=== PATIENT | male | born 1965 | race Caucasian/White ===

== ENCOUNTER 2019-01-22 04:12 | Observation (INO) ==
--- NOTE | 2019-01-22 10:25 | Internal Med History&Physical ---
Date of Encounter: 01/22/19 Time of Encounter: 10:15 Internal Medicine - H&P: HPI Chief complaint: Hematuria Admitted From: Emergency Dept ([facility] ED) History of present illness: Raudel Zarate is a 53 M w hx HTN, obesity, who presents as transfer from [facility] for gross hematuria. Began late last night around midnight when he attempted to urinate, with initial bright red bloody urine with small clots, which then abruptly halted. With valsalva maneuver he was able to pass a larger clot and subsequently able to complete urination. Painless. Has never had this before. No abdominal, penile, or testicular pain. Sexually active only with . Went to ED as soon as bleeding noticed. No dizziness or lightheadedness, no fevers, no abd pain, no N/V, no diarrhea, no rashes. In the ED, vitals unremarkable, labs unremarkable except Cr 1.2. Their documentation does note continued hematuria. CT abd revealed new 9 cm mass on Left kidney. A guerra catheter was inserted with return of clear yellow urine, surprisingly. He was transferred to [place] for further management of his hematuria and further workup of this renal mass. PMH: HTN, obesity PSH: none SH: remote smoker, social EtOH use FH: kidney stones, no cancer Internal Medicine - H&P: Meds Allergy/AdvReac Type Severity Reaction Status Date / Time egg AdvReac Diarrhea Verified 01/22/19 10:06 wheat AdvReac Rash Verified 01/22/19 10:06 All Systems PM: A 10-system review of systems was performed and is negative for pertinent findings except as documented above in the HPI. - Constitutional Vitals: Vital Signs Temp Pulse Resp BP Pulse Ox 01/22/19 10:45 99.0 F 93 18 173/117 98 Intake and Output 01/21/19 01/22/19 01/22/19 23:59 07:59 15:59 Output Total 1150 / 1150 Balance -1150 / -1150 Output: Catheter 1150 / 1150 Other: Weight 124.693 kg Patient Weight 01/22/19 23:59 Weight 124.693 kg Exam: General: NAD, good eye contact, well appearing Head: Atraumatic, normocephalic. Face symmetric Eyes: EOMI, sclerae anicteric ENT: Mucous membranes moist. Normal oral mucosa and dentition. Trachea midline. Thoracic: No visible chest wall deformities. Normal breath sounds b/l, no wheezing or crackles Cardio: Normal S1 and S2, regular rate and rhythm, no murmurs. Abdomen: Soft, nontender, nondistended. Bowel sounds present. No rebound. Obese. Extremities: Warm, well perfused. DP pulses 2+ b/l. No clubbing, cyanosis. Does have pitting edema b/l LE to knees Skin: Intact. No rashes, bruises, or ulcers Neuro: Awake, fully oriented. Good memory, concentration, attention. Speech fluent. CN II-XII grossly intact. Strength 5/5 in b/l UE and LE - Summary of Assessment and Plan Summary of Assessment and Plan: Raudel Zarate is a 53 M w hx HTN, obesity, who p/w painless hematuria and new L renal mass. Gross hematuria: resolved after Guerra insertion, indicating possible urethral injury/tear. Could certainly also be upper source w renal mass on CT. - monitor Hb - Urology consult Renal mass: seen on CT - further rec's per Urology HTN: uncontrolled, likely 2/2 situational anxiety, not on home meds, will monitor and consider initiating therapy if persistently elevated Gout: no recent flares, diet controlled, not on meds Morbid obesity: BMI 43 PPx: SCDs Activity: ambulate FEN: regular, MIVF NS@125 x2L Lines: PIV, Guerra Consults: Uro Code: Full Dispo: obs for hematuria, anticipate d/c in 0-1 days, will be homegoing
[2019-01-22] MEDS ORDERED: Ondansetron 4 MG/2 ML VIAL IVP PRN (10:31)
[2019-01-22] MEDS ORDERED: Acetaminophen 325 MG TABLET PO PRN (10:31)
[2019-01-22] MEDS ORDERED: 0.9 % Sodium Chloride 1,000 ML IVC SCH (10:45)
--- NOTE | 2019-01-22 14:25 | Urology - Consult Note ---
<Temitope Medellin N - Last Filed: 01/22/19 14:55> Date of Encounter: 01/22/19 Time of Encounter: 14:23 - Assessment and Plan (1) Renal mass, left Current Visit: Yes Status: Acute Assessment and plan: Patient is a 53-year-old male who presents with a large, 9 cm left renal mass. I reviewed CT findings with patient at bedside. I briefly discussed options for renal mass management and explained Dr. Henao will be in to reevaluate patient and further discuss plan. We are awaiting social work response in order to plan for further surgical intervention. (2) Gross hematuria Current Visit: Yes Status: Acute Assessment and plan: Patient is a 53-year-old male who presents with a left renal mass and gross hematuria. Urine is resolved, and is now transparent and clear. I have placed order to remove his Thompson catheter. CBC and BMP are pending. Patient is okay to resume normal diet at this time. Urology CN:HPI Consult date: 01/22/19 Reason for consult Urology: Gross Hematuria (left renal mass) Requesting physician: Julian Rodriguez History of present illness: Patient is a 53-year-old male who presents with a 9 cm left renal mass and gross hematuria. Patient initially presented to [facility] with complaint of painless gross hematuria with onset at midnight last night. Patient underwent Thompson catheter placement and CT of the abdomen and pelvis that revealed a 9 cm left renal mass. Patient was subsequently transferred to [facility] for urologic intervention. Patient reports no prior history of gross hematuria, and he denies any flank pain. Patient does have a history of nephrolithiasis, presumably uric acid stones, and he has a history of gout and passed multiple stones by medical expulsion. Patient is not currently established with a urologist, and he does not have a primary care provider. 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 He denies smoking, but he does have a past smoking history of approximately 6 years from ages [age]. Patient denies any known family history of malignancy or renal stones. On my evaluation, patient is currently sitting upright in bed in no apparent distress, and he has an indwelling Thompson catheter that is draining transparent, clear yellow urine into bedside bag. Past Med Surg Social Fam HX - Past Medical History Medical history: hypertension, kidney stones Psychiatric history: no psych history - Past Surgical History Surgical History: no surgical history - Social History Smoking Status: Former smoker Smokeless Tobacco Status: No Alcohol use: rarely Drug use: none - Family History Father Living Status: Still Living Hx Family Cardiac Disorders: Yes (hypotension) Hx Family Respiratory Disorders: Yes (COPD) Mother Living Status: Still Living Medications and Allergies Allergy/AdvReac Type Severity Reaction Status Date / Time egg AdvReac Diarrhea Verified 01/22/19 10:06 wheat AdvReac Rash Verified 01/22/19 10:06 Review of Systems - Constitutional fatigue, no chills, no fever(s) - EENT Nose, mouth and throat: no dizziness, no headache(s) - Cardiovascular no chest pain, no diaphoresis, no dyspnea - Respiratory no cough, no dyspnea - Gastrointestinal no abdominal pain, no nausea, no vomiting - Genitourinary hematuria, no change in urinary stream, no difficulty urinating, no dysuria, no urinary frequency, no urinary hesitancy, no urinary incontinence, no urinary urgency - Musculoskeletal no back pain, no muscle weakness - Integumentary no erythema, no rash - Neurological no confusion, no syncope - Psychiatric no anxiety, no confusion - Hematologic/Lymphatic no easy bleeding, no easy bruising - Allergic/Immunologic no throat swelling, no wheezing Exam Initial Vital Signs Temp Pulse Resp BP Pulse Ox 99.0 F 93 18 173/117 98 01/22/19 10:45 01/22/19 10:45 01/22/19 10:45 01/22/19 10:45 01/22/19 10:45 - General physical appearance Present: no distress, no pain, obese - Eyes Present: PERRL, normal ocular movement - ENT Present: normal nares, no hearing loss, no congestion - Neck Present: no masses, trachea midline, no lymphadenopathy - Respiratory Present: normal respiratory effort - Cardiovascular Cardiovascular exam IM: RRR - Abdomen Abdomen: Present: soft, non tender. Absent: distended - Genitourinary other (Thompson catheter is indwelling and draining transparent, clear yellow urine into bedside bag.) - Integumentary Present: no rash, no abnormal pigmentation - Neurologic Present: normal coordination - Musculoskeletal Present: other (Normal posture, bilateral pedal edema) Urology Results - Labs All other labs normal. - Imaging CT scan - abdomen: report reviewed, image reviewed CT scan - pelvis: report reviewed, image reviewed Consult Discharge Plan - Plan Referrals: NONE,PCP [Primary Care Provider] - <Alfonzo Henaoter - Last Filed: 01/22/19 15:43> Date of Encounter: 01/22/19 Urology CN:HPI History of present illness: Patient was seen and examined in the priorly. I do the plan as written by Temitope Medellin. Patient with very large left renal mass with recent admission secondary to gross hematuria. I discussed the patient options of treatment of his renal mass. At this time we are leaning more towards a left hand-assisted laparoscopic nephrectomy. Patient will follow-up February 03 at 1:00 in my office in [place] to discuss next step. Exam Initial Vital Signs Temp Pulse Resp BP Pulse Ox 99.0 F 93 18 173/117 98 01/22/19 10:45 01/22/19 10:45 01/22/19 10:45 01/22/19 10:45 01/22/19 10:45 Urology Results - Labs All other labs normal.
[2019-01-22 15:33] VITALS: BP 171/93
--- NOTE | 2019-01-22 15:54 | Discharge Summary ---
- NOTES TO OUTPATIENT PROVIDER Notes to Outpatient Provider: Left renal mass with planned Urology Dr Henao f/u for nephrectomy. Also has HTN and needs PCP. Date of Encounter: 01/22/19 Time of Encounter: 15:54 - Discharge Diagnosis (1) Renal mass, left Priority: Primary Status: Acute Hospital course: Dear Doctors, I recently had the opportunity to care for this patient during their recent hospital stay at [facility]. Raudel Zarate is a 53 M w hx HTN, obesity, who presented to [facility]SH ED for painless gross hematuria. CT abd revealed new 9 cm mass on Left kidney. A guerra catheter was inserted with return of clear yellow urine, surprisingly. He was transferred to [place] for further management of his hematuria and further workup of this renal mass. In the hospital, Urology evaluated patient and removed his guerra; no subsequent bleeding. He will follow up in 2 weeks with Urology for consideration and scheduling of Nephrectomy. Inicidentally noted to have HTN and needs PCP. Dx: hematuria, left renal mass Pertinent tests/consults: Urology consult, CT at OSH showing 9cm L renal mass Follow up: Urology on 02/03/19 @1:00p, also given resources for local PCPs Tests pending: none Med changes: none Mental status: awake, fully oriented Code status: Full It has been my pleasure participating in this patient's care. Please contact me with any questions or concerns regarding their hospital stay. Sincerely, Julian Rodriguez MD - Discharge Medications Allergies/Adverse Reactions: Allergy/AdvReac Type Severity Reaction Status Date / Time egg AdvReac Diarrhea Verified 01/22/19 10:06 wheat AdvReac Rash Verified 01/22/19 10:06 Date of admission: 01/22/19 10:32 Primary care physician: PCP NONE Consults: 01/22/19 10:23 Consult to Pastoral Services [CONS] Routine Comment: 01/22/19 10:31 Consult to Urology [CONS] Routine Consulting Provider: Halliey [place] Reason for Consult: 1) hematuria, 2) new 9cm renal mass Call Completed: Yes 01/22/19 14:49 Consult to Glue Drier Operator [CONS] Routine Reason for SW Consult: Patient presents with new, 9 cm left renal mass. He has no PCP and is uninsured. Appreciate social work involvement in order to plan for surgical intervention. I left a message with the on-call social worker school. - Constitutional Vitals: Temp Pulse Resp BP Pulse Ox 99.0 F 81 18 171/93 98 01/22/19 10:45 01/22/19 15:32 01/22/19 10:45 01/22/19 15:32 01/22/19 10:45 Exam: General: NAD, good eye contact, well appearing Head: Atraumatic, normocephalic. Face symmetric Eyes: EOMI, sclerae anicteric ENT: Mucous membranes moist. Normal oral mucosa and dentition. Trachea midline. Thoracic: No visible chest wall deformities. Normal breath sounds b/l, no wheezing or crackles Cardio: Normal S1 and S2, regular rate and rhythm, no murmurs. Abdomen: Soft, nontender, nondistended. Bowel sounds present. No rebound. Obese. Extremities: Warm, well perfused. DP pulses 2+ b/l. No clubbing, cyanosis. Does have pitting edema b/l LE to knees Skin: Intact. No rashes, bruises, or ulcers Neuro: Awake, fully oriented. Good memory, concentration, attention. Speech fluent. CN II-XII grossly intact. Strength 5/5 in b/l UE and LE - Patient Status Disposition: Home, Self-Care Condition: Good Functional capacity at discharge: independent ambulation Overall status at discharge: patient is back to baseline - Discharge Instructions Instructions: Acute Hematuria (DC) Follow Up With: Alfonzo Henao MD [Partnered Physician] - 02/03/19 1:00 pm (Left Renal Mass follow up) NONE,PCP [Primary Care Provider] - - Diet and Activity Activity: resume usual activities as tolerated Diet: low salt diet
== END 2019-01-22 17:51 | disposition home or self-care (01) ==
LOC: CDU
PROVIDERS: ADMIT Internal Medicine; ATTEND Internal Medicine